=== PATIENT | male | born 1960 | race Caucasian/White ===

== ENCOUNTER 2019-02-06 21:23 | Outpatient (REF) | payer OTHER, SELFPAY ==
[2019-02-06 22:01] LABS: Calculated LDL 183 mg/dL; Cholesterol 249 mg/dL (<200); Glucose 100 mg/dL (74-106); HDL Cholesterol 42 mg/dL (40-60); Triglyceride 120 mg/dL (<150)
[2019-02-08 12:35] LABS: PSA, Screening 2.9 ng/mL (0.0-3.5)
== END 2019-02-06 21:43 ==
LOC: NCHCN 21:23
PROVIDERS: PCP Nurse Practitioner Family; Visit Provider Nurse Practitioner Family
DX: Z00.00 Encounter for general adult medical examination without abnormal findings (principal); R06.6 Hiccough; N40.0 Benign prostatic hyperplasia without lower urinary tract symptoms; Z12.5 Encounter for screening for malignant neoplasm of prostate; Z13.1 Encounter for screening for diabetes mellitus; Z13.220 Encounter for screening for lipoid disorders
CPT/HCPCS: 80061; 82947; 84153

== ENCOUNTER 2019-09-22 10:43 | Outpatient (REF) | payer OTHER, SELFPAY ==
[2019-09-22 19:52] LABS: ALT 37 U/L (16-63); AST 24 U/L (15-37); Alkaline Phosphatase 99 U/L (46-116); Bilirubin, Direct 0.15 mg/dL (0.00-0.20); Bilirubin, Total 0.6 mg/dL (0.2-1.0); Creatine Kinase 142 U/L (39-308); Glucose 97 mg/dL (74-106); Total Protein 7.3 g/dL (6.4-8.2)
[2019-09-22 20:06] LABS: Calculated LDL 91 mg/dL (<100); Cholesterol 146 mg/dL (<200); HDL Cholesterol 41 mg/dL (40-60); Triglyceride 71 mg/dL (<150)
== END 2019-09-22 11:03 ==
LOC: NCHCN 10:43
PROVIDERS: PCP Nurse Practitioner Family; Visit Provider Nurse Practitioner Family
DX: E78.5 Hyperlipidemia, unspecified (principal); Z51.81 Encounter for therapeutic drug level monitoring; Z13.1 Encounter for screening for diabetes mellitus; Z00.00 Encounter for general adult medical examination without abnormal findings
CPT/HCPCS: 80061; 80076; 82550; 82947

== ENCOUNTER 2021-09-02 14:38 | Outpatient (REF) | payer OTHER, SELFPAY ==
[2021-09-02 19:04] LABS: ALT 35 U/L (16-63); AST 32 U/L (15-37); Albumin 3.7 g/dL (3.4-5.0); Alkaline Phosphatase 97 U/L (46-116); Anion Gap 8.9 mmol/L (3-11); BUN 16 mg/dL (7-18); Bilirubin, Total 0.5 mg/dL (0.2-1.0); CO2 26.1 mmol/L (21.0-32.0); Calcium 9.5 mg/dL (8.5-10.1); Calculated LDL 90 mg/dL (<100); Chloride 105 mmol/L (98-107); Cholesterol 150 mg/dL (<200); Glucose 97 mg/dL (74-106); HDL Cholesterol 48 mg/dL (40-60); Potassium 4.3 mmol/L (3.5-5.1); Sodium 140 mmol/L (136-145); Total Protein 7.2 g/dL (6.4-8.2); Triglyceride 60 mg/dL (<150)
== END 2021-09-02 14:39 | disposition home or self-care (01) ==
LOC: NCHCN 14:38
PROVIDERS: PCP Nurse Practitioner Family; Visit Provider Nurse Practitioner Family
DX: E78.5 Hyperlipidemia, unspecified (principal); N40.0 Benign prostatic hyperplasia without lower urinary tract symptoms
CPT/HCPCS: 80053; 80061

== ENCOUNTER 2022-09-24 18:44 | Outpatient (REF) | payer BC, SELFPAY ==
[2022-09-24 19:55] LABS: ALT 31 U/L (16-63); AST 26 U/L (15-37); Albumin 3.7 g/dL (3.4-5.0); Alkaline Phosphatase 113 U/L (46-116); Anion Gap 7.2 mmol/L (3-11); BUN 19 mg/dL (7-18); Bilirubin, Total 0.4 mg/dL (0.2-1.0); CO2 28.8 mmol/L (21.0-32.0); CREATININE 1.2 mg/dL (0.70-1.30); Calcium 9.8 mg/dL (8.5-10.1); Chloride 104 mmol/L (98-107); Glucose 97 mg/dL (74-106); Potassium 4.5 mmol/L (3.5-5.1); Sodium 140 mmol/L (136-145); Total Protein 7.5 g/dL (6.4-8.2)
[2022-09-25 19:15] LABS: PSA, Screening 5.1 ng/mL (<=4.5)
== END 2022-09-24 18:45 | disposition home or self-care (01) ==
LOC: NCHCN 18:44
PROVIDERS: PCP Nurse Practitioner Family; Visit Provider Nurse Practitioner Family
DX: E78.5 Hyperlipidemia, unspecified
CPT/HCPCS: 80053; 84153

== ENCOUNTER 2023-01-11 19:27 | Outpatient (REF) | payer BC, SELFPAY ==
[2023-01-11 20:38] LABS: Estimated GFR 85.63 (mL/min/1.73m2)
== END 2023-01-11 19:28 | disposition home or self-care (01) ==
LOC: LBN 19:27
PROVIDERS: PCP Nurse Practitioner Family; Visit Provider Urology
DX: R97.20 Elevated prostate specific antigen [PSA] (principal); Z01.812 Encounter for preprocedural laboratory examination
CPT/HCPCS: 82565

== ENCOUNTER 2024-03-09 16:54 | Outpatient (REF) | payer OTHER, SELFPAY ==
[2024-03-09 19:45] LABS: Calculated LDL 87 mg/dL (<100); Cholesterol 154 mg/dL (<200); HDL Cholesterol 57 mg/dL (40-60); Triglyceride 50 mg/dL (<150)
[2024-03-09 20:30] LABS: Epithelial Cells Rare HPF (Negative); Other Cells Few Spermatozoa (Negative); RBC 0-2 HPF (0-2); WBC 0-2 HPF (0-5)
[2024-03-09 20:31] LABS: Bacteria Rare HPF (Negative); C & S Indicated? No; Casts Negative LPF (Negative); Crystals Negative HPF (Negative); Mucus Negative (Negative)
[2024-03-10 21:47] LABS: PSA, Diagnostic 3.4 ng/mL (<=4.5)
== END 2024-03-09 16:55 | disposition home or self-care (01) ==
LOC: NCHCN 16:54
PROVIDERS: PCP Nurse Practitioner Family; Visit Provider Nurse Practitioner Family
DX: R31.9 Hematuria, unspecified (principal); E78.5 Hyperlipidemia, unspecified; N40.0 Benign prostatic hyperplasia without lower urinary tract symptoms
CPT/HCPCS: 80061; 81015; 84153

== ENCOUNTER 2024-03-14 10:46 | Outpatient (REF) | payer OTHER, SELFPAY ==
[2024-03-14 19:52] LABS: ALT 34 U/L (16-63); AST 28 U/L (15-37); Albumin 3.7 g/dL (3.4-5.0); Alkaline Phosphatase 106 U/L (46-116); Anion Gap 7.9 mmol/L (3-11); BUN 14 mg/dL (7-18); Bilirubin, Total 0.41 mg/dL (0.2-1.0); CO2 28.1 mmol/L (21.0-32.0); Calcium 9.6 mg/dL (8.5-10.1); Chloride 106 mmol/L (98-107); Glucose 106 mg/dL (74-106); Potassium 4.2 mmol/L (3.5-5.1); Sodium 142 mmol/L (136-145); Total Protein 7.3 g/dL (6.4-8.2)
== END 2024-03-14 10:47 | disposition home or self-care (01) ==
LOC: NCHCN 10:46
PROVIDERS: PCP Nurse Practitioner Family; Visit Provider Nurse Practitioner Family
DX: E78.5 Hyperlipidemia, unspecified (principal)
CPT/HCPCS: 80053